=== PATIENT | female | born 1975 | race African-American/Black ===

== ENCOUNTER 2016-12-25 16:27 | Emergency (ER) | payer SELFPAY ==
[~2016-12-25] VITALS: Ht 154.9 cm; Wt 50.6 kg
[2016-12-25 16:30] VITALS: BP 128/74; PULSE 131; RESP 16; TEMP 100.8; O2SAT 100
[2016-12-25 16:38] VITALS: BP 128/74; PULSE 135; RESP 16; TEMP 100.6; O2SAT 100
--- NOTE | 2016-12-25 16:50 | PD ---
HPI . cold sxs for 3 days Chief Complaint: Cold / Flu Symptoms Time Seen by Provider: 16:50 Travel History International Travel<30 days: No Contact w/Intl Traveler<30days: No Traveled to known affect area: No History of Present Illness HPI 41-year-old female with no past history here with complaints of cold and flulike symptoms for 3 days. Patient tells me that she initially started with body aches on Tuesday and took some [id number] [place]hal-[place]. She did have a MAXIMUM TEMPERATURE of 103.3. The [place]hal[place] did not really help relieve her symptoms. She complains of a dry cough, sore throat and ear pain. She admits to sick contacts, including her 2 children. She denies any recent travel. At time of examination patient denies any chills, chest pain, nausea, vomiting, shortness breath, diarrhea, or abdominal pain. PFSH Past Medical History Medical History: Denies Significant Hx Influenza Vaccination: No ?: Not LMP: 12/08/2016 Past Surgical History Section: Yes Social History Alcohol Use: No Tobacco Use: No Substance Use: No Allergies-Medications (Allergen,Severity, Reaction): Coded Allergies: Penicillin (Verified Allergy, Intermediate, HIVES, 12/25/16) Reported Meds & Prescriptions Reported Meds & Active Scripts Active Zithromax Z-Vadim (Azithromycin) 250 Mg Dspk 250 Mg PO DIRECTED 500 MG (2 tabs) day 1, then 1 tab days 2-5. Review of Systems General / Constitutional: No: Fever Eyes: No: Visual changes HENT: Positive: Sore Throat, Congestion, No: Headaches Cardiovascular: No: Chest Pain or Discomfort Respiratory: Positive: Cough, No: Shortness of Breath Gastrointestinal: No: Abdominal Pain Genitourinary: No: Dysuria Musculoskeletal: No: Pain Skin: No Rash Neurologic: No: Weakness Psychiatric: No: Depression Endocrine: No: Polydipsia Hematologic/Lymphatic: No: Easy Bruising Physical Exam Narrative GENERAL: AAO x 3, no acute distress, Well-nourished, well-developed patient. SKIN: Warm and dry. No visible rashes or bruising. HEAD: Normocephalic and atraumatic. EYES: No scleral icterus. No injection or drainage. ENT: No nasal drainage noted. Mucous membranes pink. Airway patent. + frontal and maxillary sinus tenderness, cloudy TM, posterior pharynx normal NECK: Supple, trachea midline. No JVD. CARDIOVASCULAR: Regular rate and rhythm without murmurs, gallops, or rubs. HR after patient resting in room 108. RESPIRATORY: Breath sounds equal bilaterally. No accessory muscle use. No rhonchi or rales. GASTROINTESTINAL: Abdomen soft, non-tender, nondistended. EXTREMITIES: No cyanosis or edema. BACK: Nontender without obvious deformity. No CVA tenderness. PSYCH: AAO x 3, normal affect. Data Data Last Documented VS Vital Signs Date Time Temp Pulse Resp B/P Pulse Ox O2 Delivery O2 Flow Rate FiO2 12/25/16 16:38 100.6 135 16 128/74 100 Room Air Orders Influenzae A/B Antigen (12/25/16 16:56) MDM Medical Decision Making Medical Screen Exam Complete: Yes Emergency Medical Condition: Yes Medical Record Reviewed: Yes (none on file) Differential Diagnosis sinusitis, influenza, bronchitis, less likely PNA Narrative Course 41-year-old female with no past history here with complaints of cold and flulike symptoms for 3 days. Patient tells me that she initially started with body aches on Tuesday and took some [id number] Nehal-[place]. She did have a MAXIMUM TEMPERATURE of 103.3. The [place]hal[place] did not really help relieve her symptoms. She complains of a dry cough, sore throat and ear pain. She admits to sick contacts, including her 2 children. She denies any recent travel. At time of examination patient denies any fever, chills, chest pain, nausea, vomiting, shortness breath, diarrhea, or abdominal pain. Patient seen and examined. Examination unremarkable except for frontal and maxillary sinus tenderness and some postnasal drip. She had slight tachycardia on examination heart rate was about 108-110. Discussed exam findings with her and told her she likely has sinusitis and other viral process. Advised antibiotics if influenza negative. Influenza was negative. Advised to start azithromycin. Advised return to the emergency department if her symptoms do not improve. Microbiology Date/Time Procedure Status Source Growth 12/25/16 17:00 Influenza Types A,B Antigen (ANNIKA) - Final Complete Nasal Washing NEGATIVE FOR FLU A AND B ANTIGEN.... Patient verbalized understanding of instructions, questions were answered, and thanked me for their care. I advised them if their condition worsens, please return to the nearest emergency room for further care. Diagnosis Primary Impression: Acute sinusitis Qualified Code: J01.90 - Acute sinusitis, recurrence not specified, unspecified location Patient Instructions: General Instructions, Sinusitis (ED) Additional Instructions: Please return to emergency department if your symptoms return or worsen. Follow up with your primary care provider. Take medications as prescribed. You can also take [id number] Claritin, Zyrtec or Cherrie. Pick one and use it for about 7 days. Med/Other Pt SpecificInfo: Prescription(s) given Scripts Azithromycin (Zithromax Z-Vadim)250 Mg [id number] Mg PO DIRECTED #1 DSPK Ref 0 500 MG (2 tabs) day 1, then 1 tab days 2-5. Prov:Jesus Cespedes MD 12/25/16 Disposition: 01 DISCHARGE HOME Condition: Stable Jazmín Cage Dec 25, 2016 16:50
[2016-12-25] MEDS ORDERED: ZITHTAB PO (17:38)
== END 2016-12-25 17:47 | disposition home or self-care (01) ==
LOC: PHEFT 16:27
DX: J01.90 Acute sinusitis, unspecified (principal); R00.0 Tachycardia, unspecified
CPT/HCPCS: 87804; 99283

== ENCOUNTER 2017-03-06 11:17 | Emergency (ER) | payer SELFPAY ==
[~2017-03-06] VITALS: Ht 154.9 cm; Wt 51.9 kg
[~2017-03-06 11:17] MED LIST: ZITHTAB PO
[2017-03-06 11:21] VITALS: BP 132/89; PULSE 107; RESP 16; TEMP 98.3; O2SAT 100
== END 2017-03-06 11:40 | disposition left against medical advice (07) ==
LOC: PHED 11:17
DX: R51 Headache (principal); R07.9 Chest pain, unspecified; M54.9 Dorsalgia, unspecified; Z53.21 Procedure and treatment not carried out due to patient leaving prior to being seen by health care provider
CPT/HCPCS: 99281

== ENCOUNTER 2017-03-31 12:22 | Emergency (ER) | payer MEDICAID ==
[~2017-03-31] VITALS: Ht 154.9 cm; Wt 53.0 kg
[2017-03-31 12:27] VITALS: BP 116/74; PULSE 102; RESP 16; TEMP 98.5; O2SAT 100
[2017-03-31 12:40] LABS: GLUCOSE,URINE NEG (NEG); KETONE, URINE NEG (NEG); NITRITE,URINE NEG (NEG); PH, URINE 5.5 (5.0-8.5)
[2017-03-31 12:43] LABS: BLOOD, URINE MOD (NEG)
[2017-03-31] MEDS ORDERED: LAMO150T PO (12:43)
[2017-03-31 12:44] LABS: METHOD OF COLLECTION CLEAN CATCH; URINE COLOR YELLOW (YELLW/STRAW)
[2017-03-31 12:46] LABS: BACTERIA, URINE OCC /hpf; COMMENT (UR) CULT NOT INDICATED; CULTURE IF INDICATED CULT NOT INDICATED; SQUAMOUS EPITHELIAL CELL URINE > 8 /hpf (0-5)
[2017-03-31 13:19] LABS: AUTOMATED NEUTROPHIL # 2.7 TH/MM3 (1.8-7.7); BASOPHIL % 0.5 % (0.0-2.0); EOSINOPHIL # 0.2 TH/MM3 (0-0.4); EOSINOPHIL % 3.4 % (0.0-4.0); HEMATOCRIT 32.8 % (35.0-46.0); LYMPH % 30.7 % (9.0-44.0); LYMPHOCYTE # 1.5 TH/MM3 (1.0-4.8); MEAN CELL VOLUME 75.9 FL (80.0-100.0); MEAN CORPUSCULAR HEMOGLOBIN 24.7 PG (27.0-34.0); MEAN CORPUSCULAR HGB CONC 32.6 % (32.0-36.0); MONO % 9.9 % (0.0-8.0); NEUT % 55.5 % (16.0-70.0); PLATELET COUNT 320 TH/MM3 (150-450); RED BLOOD COUNT 4.33 MIL/MM3 (4.00-5.30); RED CELL DISTRIBUTION WIDTH 13.4 % (11.6-17.2); WHITE BLOOD COUNT 4.9 TH/MM3 (4.0-11.0)
[2017-03-31 13:25] LABS: HEMO FLAGS AUTO DIFF
[2017-03-31 13:42] LABS: SCAN/DIFF AUTO DIFF CONFIRMED
[2017-03-31] MEDS ORDERED: LIDOCAINE HCL 1% 50 ML VIAL IM ONE (14:00)
[2017-03-31] MEDS ORDERED: cefTRIAXone 250 MG VIAL IM ONE (14:00)
[2017-03-31 14:05] VITALS: BP 103/73; PULSE 98; RESP 16; O2SAT 99
[2017-03-31 15:00] VITALS: BP 113/70; PULSE 76; PULSE 85; RESP 16
--- NOTE | 2017-03-31 15:38 | RADHPO ---
EXAM DATE/TIME: 03/31/2017 13:17 [facility] COMPARISON: No previous studies available for comparison. INDICATIONS : Pelvic pain. MEDICAL HISTORY : Pelvic pain. SURGICAL HISTORY : section. Salpingectomy. ENCOUNTER: Initial ACUITY: 4-6 days PAIN SCORE: 4/10 LOCATION: Bilateral pelvis MEASUREMENTS: UTERUS: 9.0 x 6.1 x 6.1 cm ENDOMETRIAL STRIPE: 18 mm RIGHT OVARY: 3.4 x 2.1 x 2.9 cm LEFT OVARY: 5.3 x 3.7 x 4.0 cm FINDINGS: UTERUS: The myometrium has homogeneous echotexture without mass. Endometrium is a homogeneous echotexture. RIGHT OVARY: Ovary contains no mass or significant cystic lesion. LEFT OVARY: There is an abnormal appearance to the left adnexa with a hyperechogenic heterogeneous echotexture ma sslike area measuring 3.5 x 3.1 x 2.7 cm. There is some free fluid surrounding this lesion and, on c olor Doppler, there is some mild peripheral flow. No internal cysts in this lesion. MISCELLANEOUS: No free fluid in the cul-de-sac. CONCLUSION: Abnormal appearance the left adnexa with 3.5 cm heterogeneous echotexture, round shape, partially hyp erechogenic mass with some peripheral blood flow and some surrounding free fluid. Recommend correlat ion with quantitative beta-hCG to exclude . René South MD on March 31, 2017 at 15:32 Board Certified Radiologist. This report was verified electronically.
--- NOTE | 2017-03-31 15:39 | PD ---
HPI Chief Complaint: Abdominal Pain Time Seen by Provider: 13:01 Travel History International Travel<30 days: No Contact w/Intl Traveler<30days: No Traveled to known affect area: No History of Present Illness HPI This 41-year-old female is complaining of lower abdominal pain. She says she's been having this pain since February. She is not aware of any fever or chills. She does not think she is . She is having left tubal resection hasn't assessed. She has a filshie clip on her right tube. PFSH Past Medical History Hx Anticoagulant Therapy: No Depression: Yes Diabetes: No Diminished Hearing: No Tetanus Vaccination: < 5 Years Influenza Vaccination: No ?: Unknown LMP: march 10 Ovarian Cysts: Yes (fallopian tube removed ( Salpingectomy )) Past Surgical History Section: Yes Social History Alcohol Use: No Tobacco Use: No Substance Use: No Allergies-Medications (Allergen,Severity, Reaction): Coded Allergies: Penicillin (Verified Allergy, Intermediate, HIVES, 03/31/17) Reported Meds & Prescriptions Reported Meds & Active Scripts Active Reported Lamotrigine 150 Mg Tab 150 Mg PO DAILY Review of Systems General / Constitutional: No: Fever, Chills Eyes: No: Diploplia HENT: No: Headaches, Vertigo Cardiovascular: No: Chest Pain or Discomfort, Palpitations Respiratory: No: Cough, Shortness of Breath Gastrointestinal: No: Nausea, Vomiting Genitourinary: No: Dysmenorrhea, Vaginal Bleeding Musculoskeletal: No: Myalgias Skin: No Rash, No Lumps Hematologic/Lymphatic: No: Easy Bruising Physical Exam Narrative GENERAL: Well-developed female SKIN: Focused skin assessment warm/dry. HEAD: Atraumatic. Normocephalic. EYES: Pupils equal and round. No scleral icterus. No injection or drainage. ENT: No nasal bleeding or discharge. Mucous membranes pink and moist. NECK: Trachea midline. No JVD. CARDIOVASCULAR: Regular rate and rhythm. No murmur appreciated. RESPIRATORY: No accessory muscle use. Clear to auscultation. Breath sounds equal bilaterally. GASTROINTESTINAL: Abdomen soft, non-tender, nondistended. Hepatic and splenic margins not palpable. Pelvic: There is a moderate amount of whitish discharge. There is some pain with movement of the cervix and some adnexal tenderness. I don't feel any masses MUSCULOSKELETAL: No obvious deformities. No clubbing. No cyanosis. No edema. NEUROLOGICAL: Awake and alert. No obvious cranial nerve deficits. Motor grossly within normal limits. Normal speech. PSYCHIATRIC: Appropriate mood and affect; insight and judgment normal. Data Data Last Documented VS Vital Signs Date Time Temp Pulse Resp B/P Pulse Ox O2 Delivery O2 Flow Rate FiO2 03/31/17 14:05 98 16 103/73 99 Room Air 03/31/17 12:27 98.5 Orders Urinalysis - C+S If Indicated (03/31/17 12:29) Ed Urine Pregnancytest Poc (03/31/17 12:29) Complete Blood Count With Diff (03/31/17 13:01) Us Pelvis Comp W Dop Transvag (03/31/17 13:01) Gc And Chlamydia Pcr (03/31/17 13:58) Wet Prep Profile (03/31/17 13:58) Ceftriaxone Inj (Rocephin Inj) (03/31/17 14:00) Lidocaine 1% Inj (50 Ml) (Xylocaine 1% I (03/31/17 14:00) Beta Hcg (Quant/Titer) (03/31/17 15:39) Labs Laboratory Tests Test 03/31/17 03/31/17 03/31/17 03/31/17 12:30 13:15 14:00 15:50 Urine Collection Type CLEAN CATCH Urine Color YELLOW Urine Turbidity CLEAR Urine pH 5.5 Urine Specific [place] 1.028 Urine Protein NEG mg/dL Urine Glucose (UA) NEG mg/dL Urine Ketones NEG mg/dL Urine Occult Blood MOD Urine Nitrite NEG Urine Bilirubin NEG Urine Leukocyte Esterase NEG Urine RBC 20-24 /hpf Urine WBC 3-5 /hpf Urine Squamous Epithelial > 8 /hpf Cells Urine Bacteria OCC /hpf Microscopic Urinalysis Comment CULT NOT INDICATED Urine Collection Time 12:30 White Blood Count 4.9 TH/MM3 Red Blood Count 4.33 MIL/MM3 Hemoglobin 10.7 GM/DL Hematocrit 32.8 % Mean Corpuscular Volume 75.9 FL Mean Corpuscular Hemoglobin 24.7 PG Mean Corpuscular Hemoglobin 32.6 % Concent Red Cell Distribution Width 13.4 % Platelet Count 320 TH/MM3 Mean Platelet Volume 6.7 FL Neutrophils (%) (Auto) 55.5 % Lymphocytes (%) (Auto) 30.7 % Monocytes (%) (Auto) 9.9 % Eosinophils (%) (Auto) 3.4 % Basophils (%) (Auto) 0.5 % Neutrophils # (Auto) 2.7 TH/MM3 Lymphocytes # (Auto) 1.5 TH/MM3 Monocytes # (Auto) 0.5 TH/MM3 Eosinophils # (Auto) 0.2 TH/MM3 Basophils # (Auto) 0.0 TH/MM3 CBC Comment AUTO DIFF Differential Comment AUTO DIFF CONFIRMED Clue Cells (Wet Prep) NONE SEEN Vaginal Trichomonas (Wet Prep) NONE SEEN Vaginal Yeast (Wet Prep) NONE SEEN Human Chorionic Gonadotropin, LESS THAN 1 Quant MIU/ML MDM Medical Decision Making Medical Screen Exam Complete: Yes Emergency Medical Condition: Yes Medical Record Reviewed: Yes Differential Diagnosis Differential includes cervicitis, ovarian cyst, pain secondary to filshie clamp Narrative Course Hemoglobin is 10. An ultrasound of the pelvis was ordered. There is abnormal appearance the left adnexa with a 3.5 cm heterogeneous round mass in peripheral blood flow. Relation with quantitative beta is recommended. Prior to the ultrasound I had ordered a urine test which was negative but I have now ordered a quantitative. The quantitative beta is also negative. Patient is stable for discharge. She did have a discharge will be treated with Rocephin and doxycycline Diagnosis Primary Impression: Ovarian cyst Additional Impression: Cervicitis Additional Instructions: FOLLOW UP WITH [employer] WORKER Scripts Doxycycline Hyclate 100 Mg [id number] Mg PO BID #20 CAP Prov:Dharmesh Martini MD 03/31/17 Disposition: 01 DISCHARGE HOME Condition: Stable Dharmesh Martini MD Mar 31, 2017 15:39
[2017-03-31 16:17] LABS: BETA HCG QUANT LESS THAN 1 MIU/ML (0-5)
[2017-03-31] MEDS ORDERED: DOXY100C PO (16:25)
[2017-03-31 17:06] LABS: CHLAMYDIA PCR NOT DETECTED (NOT DETECT); NEISSERIA PCR NOT DETECTED (NOT DETECT)
== END 2017-03-31 16:50 | disposition home or self-care (01) ==
LOC: PHED 12:22
DX: N83.202 Unspecified ovarian cyst, left side (principal); N72 Inflammatory disease of cervix uteri; Z88.0 Allergy status to penicillin
CPT/HCPCS: 76830; 76856; 81001; 84702; 84703; 85025; 87210; 87491; 87591; 93975; 96372; 99285; J0696